=== PATIENT | female | born 1970 | race Caucasian/White ===

== ENCOUNTER → 2020-10-13 14:37 | Outpatient (BNVA) | payer MEDICARE, MEDICAID, SELFPAY | PROVIDERS: PCP Nurse Practitioner Primary Care; Referring Provider Nurse Practitioner Primary Care; Visit Provider Surgery | DX: R19.05 Periumbilic swelling, mass or lump (principal) | CPT/HCPCS: 99202 ==

== ENCOUNTER 2021-03-17 09:50 | Outpatient (REF) | payer MEDICARE, MEDICAID, SELFPAY ==
--- NOTE | ~2021-03-17 | US_ITS ---
EXAMINATION: US ABDOMEN LIMITED CLINICAL INFORMATION: Question umbilical hernia. Status post hernia repair in 02/2020 COMPARISON: CT abdomen 09/09/2018. TECHNIQUE: Real-time imaging of the right upper abdomen, midline upper abdomen, midline inferior to umbilicus. FINDINGS: Ultrasound imaging through upper midline abdominal wall reveals no obvious hernia or mass or fluid collection inferior to the umbilicus. US/US abdomen limited IMPRESSION: No ultrasound visualized mass or hernia in midline upper abdomen inferior to the umbilicus.
== END 2021-03-17 09:51 | disposition home or self-care (01) ==
LOC: HO.US 09:50
PROVIDERS: PCP Internal Medicine; Visit Provider Physician Assistant
DX: K42.9 Umbilical hernia without obstruction or gangrene (principal)
CPT/HCPCS: 76705

== ENCOUNTER → 2024-04-09 10:06 | Outpatient (BNVA) | payer SELFPAY | PROVIDERS: PCP Nurse Practitioner Family; Visit Provider Physician Assistant ==